=== PATIENT | female | born 1955 | race Caucasian/White ===

== ENCOUNTER 2016-10-09 15:22 | Inpatient (IN) | payer MEDICAID ==
[2016-10-09] VITALS (7 sets, daily range): BP systolic 89–164; BP diastolic 47–119; BMI 25.7
[~2016-10-09] VITALS: Ht 165.1 cm; Wt 68.5 kg
[2016-10-09 16:26] LABS: BASOPHILS 0.1 % (0.0-2.0); EOSINOPHILS 0.5 % (0-7); HEMATOCRIT 45.4 % (36.0-48.0); HEMOGLOBIN 15.2 g/dL (12-16); IMMATURE GRANULOCYTES 0.3 % (0-5); LYMPHOCYTES 14.7 % (15-50); MCH 33.6 pg (26.0-34.0); MCHC 33.5 g/dL (31.0-37.0); MCV 100.2 fL (80.0-100.0); MEAN PLATELET VOLUME 10.6 fL (7.4-10.4); MONOCYTES 9.8 % (2-11); NEUTROPHILS 74.6 % (40-80); PLATELET COUNT 129 10x3/uL (130-400); RBC 4.53 10x6/uL (4.00-5.40); RDW 13.3 % (11.5-14.5); WBC 15.5 10x3/uL (4.8-10.8)
[2016-10-09 16:36] LABS: ALBUMIN 3.5 g/dL (3.4-5.0); ALKALINE PHOSPHATASE 105 U/L (46-116); ALT (SGPT) 12 U/L (10-68); CALC OSMOLALITY 268 mosm/kg (275-300); CARBON DIOXIDE 28.4 mmol/L (21.0-32.0); CHLORIDE - SERUM 95 mmol/L (98-107); CREATININE - SERUM 2.5 mg/dL (0.6-1.3); GLUCOSE 122 mg/dL (74-106); SODIUM 133 mmol/L (136-145); UREA NITROGEN 19 mg/dL (7-18); eGFR NON AFRICAN AMERICAN 21 mL/min (90-120)
[2016-10-09 16:43] LABS: PRO BNP 488 pg/mL (0-125); TROPONIN-I < 0.017 ng/mL (0.000-0.060)
[2016-10-09 16:51] LABS: APPEARANCE HAZY (CLEAR); BILIRUBIN NEGATIVE (NEGATIVE); COLOR YELLOW (YELLOW); GLUCOSE NEGATIVE (NEGATIVE); KETONE NEGATIVE (NEGATIVE); LEUKOCYTE ESTERASE 1+ (NEGATIVE); NITRITE NEGATIVE (NEGATIVE); PROTEIN NEGATIVE (NEGATIVE); SPECIFIC GRAVITY 1.015 (1.005-1.020); UROBILINOGEN NORMAL (NORMAL)
[2016-10-09 16:52] LABS: BACTERIA MODERATE /hpf (NONE SEEN); RED CELLS - URINE 0-5 /hpf (0-5)
[2016-10-09 16:56] LABS: UDS - AMPHET NEGATIVE QUAL (NEGATIVE); UDS - BARB NEGATIVE QUAL (NEGATIVE); UDS - BENZO NEGATIVE QUAL (NEGATIVE); UDS - COCAINE NEGATIVE QUAL (NEGATIVE); UDS - METH NEGATIVE QUAL (NEGATIVE); UDS - OPIATE POSITIVE QUAL (NEGATIVE); UDS - PCP NEGATIVE QUAL (NEGATIVE); UDS - THC NEGATIVE QUAL (NEGATIVE)
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
[2016-10-09] MEDS ORDERED: LISINOPRIL10 MG PO (22:01)
[2016-10-09] MEDS ORDERED: BACLOFEN10 MG PO (22:01)
[2016-10-09] MEDS ORDERED: TRAZODONE HCL50 MG PO (22:02)
[2016-10-09] MEDS ORDERED: PROTONIX40 MG PO (22:02)
[2016-10-09] MEDS ORDERED: CELEXA20 MG PO (22:03)
[2016-10-09] MEDS ORDERED: NEURONTIN600 MG PO (22:04)
[2016-10-09] MEDS ORDERED: BAYER CHEWABLE81 MG PO (22:21)
[2016-10-09] MEDS ORDERED: OXYCONTIN10 MG PO (22:23)
[2016-10-09] MEDS ORDERED: THEREMS-M1 TAB PO (22:26)
[2016-10-09] MEDS ORDERED: FERROUS SULFAT325 MG PO (22:26)
[2016-10-10] VITALS (24 sets, daily range): BP systolic 89–188; BP diastolic 47–106
--- NOTE | 2016-10-10 | NUR ---
PATIENT RESTING IN BED WITH EYES CLOSED, AWAKENS TO STIMULI. STATES SHE IS STILL HAVING PAIN IN LEGS. VSS.
--- NOTE | 2016-10-10 03:22 | NUR ---
PATIENT HAD BOWEL MOVEMENT AND IS INCONTINENT OF URINE. PATTON PLACED FOR SKIN INTEGRITY.
[2016-10-10 04:24] LABS: BASOPHILS 0.1 % (0.0-2.0); EOSINOPHILS 0.1 % (0-7); HEMOGLOBIN 12.5 g/dL (12-16); IMMATURE GRANULOCYTES 0.3 % (0-5); LYMPHOCYTES 9.1 % (15-50); MCH 32.9 pg (26.0-34.0); MCHC 32.9 g/dL (31.0-37.0); MEAN PLATELET VOLUME 10.1 fL (7.4-10.4); MONOCYTES 10.3 % (2-11); NEUTROPHILS 80.1 % (40-80); PLATELET COUNT 123 10x3/uL (130-400); RDW 13.1 % (11.5-14.5)
[2016-10-10 04:38] LABS: ANION GAP 12.6 mmol/L (8-16); CALCIUM 8.2 mg/dL (8.5-10.1); CARBON DIOXIDE 25.9 mmol/L (21.0-32.0); CREATININE - SERUM 1.6 mg/dL (0.6-1.3); POTASSIUM - SERUM 4.5 mmol/L (3.5-5.1); WBC 10.9 10x3/uL (4.8-10.8)
--- NOTE | 2016-10-10 05:15 | NUR ---
PATIENT WOKE UP YELLING "HELP" UPON ENTERING ROOM PATIENT SAID SOMETHING WAS SQUEEZING HER LEGS. REMINDED PATIENT SHE HAD SCD'S ON. WAS ABLE TO STATE WHERE SHE WAS AND SITUATION. VSS. PATIENT RETURNED TO A CALM MANNER.
--- NOTE | 2016-10-10 07:33 | NUR ---
PT COMPLAINT OF CHEST PAIN STATING "CRUSHING PAIN" EKG AND CARDIAC ENXYMES ORDERED. PT CONFUSED TO TIME. WILL CONTINUE PLAN OF CARE.
[2016-10-10 08:25] LABS: CREATINE KINASE 1737 UL (21-215); TROPONIN-I < 0.017 ng/mL (0.000-0.060)
--- NOTE | 2016-10-10 09:04 | NUR ---
PAGED DR CALVO TO NOTIFY OF ELEVATED CKMB AND CK WITH NORMAL EKG AND NORMAL TROPONIN PLACED WHEN PT COMPLAINT OF CHEST PAIN. NEW ORDER PLACED FOR PROTONIX 40MG BID. WILL PLACE ORDERS DIRECTED. WILL CONTINUE PLAN OF CARE.
--- NOTE | 2016-10-10 10:42 | NUR ---
AT 1036 PT NOTED TO HAVE AGINAL BREATHING AND DESATED TO 80S, PT BAGGED AND OXYGEN SATURATION CAME UP AT 1038, OXYGEN SATURATION AT 98%. OXYGEN INCREASED FROM 2L VIA NC TO 5L VIA NC. DR CALVO NOTIFIED. NOTED CONSULT ORDER FOR DR ARMAS FOR PULMONOLOGY. WILL PLACE ORDERS.
--- NOTE | 2016-10-10 12:04 | NUR ---
UP IN BED AT THIS TIME VISITING WITH VISITOR. NO ACUTE DISTRESS NOTED. WILL CONTINUE PLAN OF CARE.
--- NOTE | 2016-10-10 12:58 | NUR ---
REFUSED LUNCH AND SNACKS OFFERED. WILL CONTINUE PLAN OF CARE AND WILL CONTINUE TO OFFER SNACKS.
--- NOTE | 2016-10-10 14:05 | NUR ---
UP IN BED AWAKE WATCHING TV AT THIS TIME. NO ACUTE DISTRESS NOTED. WILL CONTINUE PLAN FO CARE.
--- NOTE | 2016-10-10 16:05 | NUR ---
AWAKE IN BED AT THIS TIME WATCHING TV. DENEIS ANY NEEDS. NO ACUTE DISTRESS NOTED. WILL CONTINUE PLAN OF CARE.
--- NOTE | 2016-10-10 17:32 | NUR ---
PARTIAL LINEN CHANGE PROVIDED AT THIS TIME, NOTED SMALL BOWEL MOVEMENT. ALICIA CARE AND PATTON CARE PROVIDED VIA TOTAL ASSIST. NO ACUTE DISTRESS. PT TURNED Q2H. WILL CONTINUE PLAN OF CARE.
--- NOTE | 2016-10-10 17:58 | NUR ---
SITTING UP IN BED EATING SUPPER WITH SETUP ASSIST. NO ACUTE DISTRESS NOTED. WILL CONTINUE PLAN OF CARE.
--- NOTE | 2016-10-10 19:30 | NUR ---
RECEIVED PATIENT AWAKE IN BED WITH EYES OPEN, ASSESSMENT PCOMPLETED PER FLOWSHEET. PATIENT IS DISORIENTED TO SITUATION, ANSWERED PATIENT QUESTION REGARDING CURRENT STATUS TO PATIETN SATISFACTION. EYES PERRLA @ 3MM WITH BRISK RESPONSE, SCLERA IS WHITE. 5L O2 VIA NC, ORAL MUCOSA IS MOIST AND INTACT. S1/S2 NOTED WITH PATIENT SINUS TACH ON TELEMETRY WITH HR OF 105, RHYTHMIC AND REGULAR. SLIGHT RHONCHI NOTED THROUGHOUT ALL LOBES WITH BREATHING SHALLOW AND REGULAR, AUSCULATATION DIFFICULT DUE TO PATIENT REPEATEDLY CLEARING THROAT. ABDOMEN IS SOFT AND NON-TENDER TO PALPATION, BOWEL SOUNDS HYPOACTIVE X4. PATTON SECURED IN PLACE WITH CLEAR YELLOW URINE NOTED IN COLLECTION BAG, YELLOW STICKY DISCHARGE NOTED BETWEEN THIGHS NEAR VAGINAL AREA. PATIENT ADL LIMITED FROM CONTRACTURES, WEAKNESS NOTED IN ALL EXTREMITIES. 20G PIV NOTED R HAND, PATENT WITH FLUIDS INFUSING. PATIENT C/O DIFFICULTY SWALLOWING AND "FEELS LIKE MUCOUS IS HUNG IN HER THROAT", SPEECH THERAPY TO BEGIN TREATMENT IN AM FOR DIAGNOSED DYSPHAGIA. ALL PULSES PALPABLE, NO FURTHER NEEDS AT THIS TIME. WILL CONTINUE TO MONITOR.
--- NOTE | 2016-10-10 21:00 | NUR ---
NO VISITORS AT THIS TIME, HS MEDS GIVEN PO. PILLS GIVEN ONE AT A TIME, MULTIPLE SWALLOW ATTEMPTS MADE FOR EACH PILL. MAGALIE STATES ANXIETY FROM "ANNOYING LUMP IN BACK OF THROAT", GIVEN PRN MEDS TO REDUCE AND WILL REASSESS. NO FURTHER NEEDS AT THIS TIME, WILL CONTINUE TO MONITOR.
--- NOTE | 2016-10-10 23:16 | NUR ---
REASSESSMENT COMPELTE PER FLOW SHEET. VSS. NO NEW CHANGES AT THIS TIME. WILL CONTINUE TO MONITOR.
[2016-10-11] VITALS (16 sets, daily range): BP systolic 128–157; BP diastolic 65–110; Ht 165.1 cm; Wt 68.5 kg
--- NOTE | 2016-10-11 01:00 | NUR ---
PATIENT RESTING IN BED WITH EYES CLOSED, PATIENT STILL ATTEMPTING TO CLEAR THROAT. STATES "FEELS LIKE SOMETHING IS STUCK", YANKEUR PROVIDED TO HELP CLEAR SECRETIONS FROM MOUTH. DENIES OTHER NEEDS AT THIS TIME, ALL VSS AND WILL CONTINUE TO MONITOR.
--- NOTE | 2016-10-11 02:46 | NUR ---
REASSESSMENT COMPLETE PER FLOWSHEET, PATIENT RESTING IN BED WITH EYES CLOSED. BREATHING IS SLIGHTLY SHALLOW WITH RHONCHI NOTED THROUGHOUT ALL NEWSOME. PATIENT IS NSR ON TELEMETRY WITH HR OF 94, RHYTHMIC AND REGULAR. PATIENT DENIES PAIN OR OTHER NEEDS AT THIS TIME, ALL VSS AND WILL CONTINUE TO MONITOR.
[2016-10-11 04:11] LABS: BASOPHILS 0.1 % (0.0-2.0); EOSINOPHILS 1.8 % (0-7); HEMATOCRIT 35.8 % (36.0-48.0); HEMOGLOBIN 11.6 g/dL (12-16); IMMATURE GRANULOCYTES 0.3 % (0-5); LYMPHOCYTES 13.8 % (15-50); MCH 32.4 pg (26.0-34.0); MCHC 32.4 g/dL (31.0-37.0); MEAN PLATELET VOLUME 10.6 fL (7.4-10.4); MONOCYTES 13.8 % (2-11); NEUTROPHILS 70.2 % (40-80); PLATELET COUNT 129 10x3/uL (130-400); RBC 3.58 10x6/uL (4.00-5.40); RDW 13.1 % (11.5-14.5)
[2016-10-11 04:28] LABS: ANION GAP 13.4 mmol/L (8-16); CALCIUM 8.2 mg/dL (8.5-10.1); CARBON DIOXIDE 24.4 mmol/L (21.0-32.0)
[2016-10-11 04:29] LABS: POTASSIUM - SERUM 3.8 mmol/L (3.5-5.1)
--- NOTE | 2016-10-11 05:00 | NUR ---
PATIENT RESTING IN BED WITH EYES CLOSED, OXYGEN SAT 97% ON 5L O2. NO FURTHER NEEDS AT THIS TIME, ALL VSS AND WILL CONTINUE TO MONITOR.
--- NOTE | 2016-10-11 07:15 | NUR ---
ASSESSMENT COMPLETE. AAO X4. PATIENT ANXIOUS. C/O RIGHT HIP PAIN. RESTLESS. 3L NC. CRACKLES IN RUL, RML, LOUISA. DIMINISHED LOWER LOBES BILAT. S1S2 NOTED, RADIAL AND PEDAL PULSES PALP, SINUS TACHYCARDIA. ACTIVE BOWEL SOUNDS X4. PUREE DIET. SAYS SHE HAS NO APPETITE. AFEBRILE. GENERALIZED WEAKNESS WITH STIFF UPPER EXTREMETY AND LIMITED ROM. RIGHT HAND PIV PATENT. FOR OTHER ASSESSMENT FINDINGS SEE FLOWSHEET. WILL CONTINUE TO MONITOR.
--- NOTE | 2016-10-11 09:00 | NUR ---
NO VISITORS AT BEDSIDE. DID NOT EAT MUCH OF BREAKFAST, SAID SHE DID NOT LIKE HER FOOD PUREED.
--- NOTE | 2016-10-11 11:00 | NUR ---
REASSESSMENT COMPLETE. DR CALVO AT BEDSIDE. MEPILEX DRESSING APPLIED TO COCCYX. FOR ASSESSMENT FINDINGS SEE DETAILS ON FLOWSHEET.
--- NOTE | 2016-10-11 11:35 | NUR ---
REQUESTED BACLOFEN FROM PHARMACY
--- NOTE | 2016-10-11 12:37 | NUR ---
ASSISTED PATIENT WITH LUNCH TRAY. PATIENT COUGHED OCCASIONALLY WHEN SWALLOWING BUT NOT CONSISTANTLY. SAYS "THE TEXTURE OF THE FOOD BOTHERS ME, IT DOESNT TASTE GOOD." ATE ONLY A SMALL AMOUNT OF FOOD. ORAL CARE PROVIDED AFTER MEAL.
--- NOTE | 2016-10-11 12:46 | NUR ---
PATIENT DRANK ALL OF ENSURE DRINK SUPPLEMENT
--- NOTE | 2016-10-11 14:17 | NUR ---
DR. CALVO SAID PATIENT IS OK TO GO TO FLOOR LONG DR. LU SAYS PATIENT IS OK TO GO TO FLOOR. SPOKE WITH DR. LU, SHE IS OKAY TO TRANSFER OUT.
--- NOTE | 2016-10-11 14:30 | NUR ---
PT AT BEDSIDE DOING ROM
--- NOTE | 2016-10-11 17:04 | NUR ---
vIs the patient Alert and Oriented? Yes 0 * How many steps to enter\exit or inside your home? none 0 * PCP DR Sean Lee, [place] SHAHEEN Valdez sees the patient 0 * Pharmacy [facility] [employer] 0 * Preadmission Environment Home Alone 0 * ADLs Partial Dependent 0 * Partial ADLs (Assistance needed) Bathing Dressing 0 * Equipment Shower Chair 0 * Other Equipment raised toilet seat, power lift chair, walker, shower chair, commode, manual wheelchair 0 * List name and contact numbers for known caregivers / representatives who currently or will assist patient after discharge: Jessie Sarmiento- [facility]- [phone] CHOCOLATE MAKER from [facility] 0 * Community resources currently utilized Home Health 0 * Please name any agencies selected above. [facility] for SN/ PT/ OT/ Social Work 0 * Additional services required to return to the preadmission environment? Yes 0 * Can the patient safely return to the preadmission environment? Yes 0 * Has this patient been hospitalized within the prior 30 days at any hospital? No 0
--- NOTE | 2016-10-11 17:37 | NUR ---
Met w/ patient at the bedside. She complained of feeling hot and "burning up". The room was at approximately 68 degrees. She has nasal O2 however appears short of breath. She is speaking in short sentences and stopping to take a breath between each sentence. Patient is not on oxygen at home. She lives at the [facility] in [address]. There is an elevator in the building. She has home health services w/ [facility] and [facility]. CM spoke w/ Marjan at [facility] . She states patient has been receiving SN/ PT/ OT/ services. SW consult was recently assigned. Patient was requesting more care. Cody Lehman started [employer] services September 05, 2016. She had an apt w/ DR Alyssa Silva, her "rehab doctor" 10/07. The patient had been feeling "bad" and weaker. Planning for possible admission to [facility] Rehab Unit at discharge. Patient's PCP is DR Sean Cruz. She sees his FRONT OFFICE HELP, Serina Valdez. Pharmacy- [facility] Patient has a sister, Jessie Sarmiento, . Her contact phone number is [phone]. The sister will provide transportation to home. Patient is hoping to go to [facility] acute rehab w/ DR Silva when medically stable. DME- can not recall her provider. She has a walker, raised toilet seat, commode, manual wheelchair, power lift chair, Neurology consult pending and multiple labs. Radiology disc prepared if patient is transferred to [facility]. CM to follow. Patient is cooperative but fatigues easily.
--- NOTE | 2016-10-11 17:59 | NUR ---
RECIEVED FROM ICU AWAKE AND ALERT ORINETD X 3 SCDS BILATERALLY PATTON PATENT TO CLEAR YELLOW URINE. ORINETED TO ROOM AND CALL LIGHT SYSTEM. LIMITED MOBILITY NOTED O RIGHT UPPER EXTRMEITY AND LIMITED MOTOR CONTROL TO LEFT UPPER EXTREMITY. WILL MONITOR
--- NOTE | 2016-10-11 19:45 | NUR ---
BROUGHT PATIENT A PILLOW PER HER REQUEST. PATIENT DENIES OTHER NEEDS AT THIS TIME. BED IN LOWEST POSITION AND CALL LIGHT WITHIN REACH.
--- NOTE | 2016-10-11 23:10 | NUR ---
PATIENT IS UPSET THAT HER ROOM IS "HOT". PATIENT'S AIR CONDITIONER IS BLOWING COLD AND HER WINDOW IS OPEN. I SPOKE WITH SURJIT ABOUT GETTING A FAN FOR THE PATIENT'S ROOM.
--- NOTE | 2016-10-11 23:15 | NUR ---
ATTEMPTED TO PERFORM ASSESSMENT ON PATIENT. PATIENT REFUSED STATING "NO, DON'T TOUCH ME AND DON'T GIVE ME ANYMORE MEDICINE."
[2016-10-12 01:00] VITALS: BP 156/92
--- NOTE | 2016-10-12 02:43 | NUR ---
ATTEPMTED TO PERFORM AM ABG. PT REFUSED. SHE REFUSES TO PERFORM IS/FLUTTER. "IM NOT DOING THOSE BREATHING THINGS AND YOU AREN'T TOUCHING ME."
[2016-10-12 05:00] VITALS: BP 145/99
[2016-10-12 05:49] LABS: BASOPHILS 0.1 % (0.0-2.0); EOSINOPHILS 1.2 % (0-7); HEMOGLOBIN 12.8 g/dL (12-16); IMMATURE GRANULOCYTES 0.3 % (0-5); LYMPHOCYTES 11.2 % (15-50); MCH 32.7 pg (26.0-34.0); MCHC 33.7 g/dL (31.0-37.0); MONOCYTES 8.9 % (2-11); NEUTROPHILS 78.3 % (40-80); PLATELET COUNT 141 10x3/uL (130-400); RBC 3.91 10x6/uL (4.00-5.40); RDW 12.8 % (11.5-14.5); WBC 7.4 10x3/uL (4.8-10.8)
[2016-10-12 05:56] LABS: MCV 97.2 fL (80.0-100.0)
[2016-10-12 06:54] LABS: CALCIUM 8.1 mg/dL (8.5-10.1); CARBON DIOXIDE 19.5 mmol/L (21.0-32.0); CHLORIDE - SERUM 98 mmol/L (98-107); GLUCOSE 104 mg/dL (74-106); SODIUM 132 mmol/L (136-145)
[2016-10-12 06:56] LABS: CALC OSMOLALITY 262 mosm/kg (275-300); CREATINE KINASE 1000 UL (21-215); CREATININE - SERUM 0.7 mg/dL (0.6-1.3); MAGNESIUM - SERUM 1.6 mg/dL (1.8-2.4); POTASSIUM - SERUM 4.6 mmol/L (3.5-5.1); UREA NITROGEN 8 mg/dL (7-18); eGFR NON AFRICAN AMERICAN 90 mL/min (90-120)
[2016-10-12 07:18] LABS: CKMB 3.9 U/L (0.0-3.6)
[2016-10-12 07:41] LABS: ERYTHROCYTE SEDIMENTATION RATE 28 mm/hr (0-30)
[2016-10-12 08:19] VITALS: BP 155/98
--- NOTE | 2016-10-12 08:29 | NUR ---
PT ASSESSMENT COMPLETE AWAKE AND ALERT TO SURROUNDING ORIENTED X 3 LUNGS CLEAR BILATERALLY HAS DIFFICULTY CLEARING THROAT PER PT REPORT UPON OBSERVATION NOTHING NOTED TO MOUTH OR BACK OF PHARANX. PT REFUSING BREAKFAST HOWEVER DRANK 75% OF ENSURE. CALL LIGHT IN REACH SIDE RAILS UP X 2
[2016-10-12 09:17] LABS: JO-1 ANTIBODY <0.2 AI (0.0-0.9)
[2016-10-12 11:46] VITALS: BP 150/94
--- NOTE | 2016-10-12 12:40 | NUR ---
PATIENT IN MID BAUMAN POSITION ALERT. NO SIGNS OF DISTRESS NOTED. SIDE RAILS UP X2. BED IN LOW POSITION. CALL LIGHT IN REACH.
[2016-10-12 16:10] VITALS: BP 161/109
--- NOTE | 2016-10-12 19:37 | NUR ---
PATIENT RESTING IN SEMI-FOWLERS POSITION WITH EYES CLOSED. NO VISIBLE SIGNS OF DISTRESS. BED IN LOWEST POSITION AND CALL LIGHT WITHIN REACH.
[2016-10-12 21:00] VITALS: BP 147/95
[2016-10-13 01:00] VITALS: BP 140/96
[2016-10-13 05:00] VITALS: BP 158/114
--- NOTE | 2016-10-13 07:30 | NUR ---
RECIEVED PT DURING WALKING ROUNDS. PT RESTING IN BED WITH GENERALIZED PAIN OF A 9 ON A SCALE OF 1-10. INFORMED PT THAT SCHEDULED MEDICATION FOR PAIN WOULD BE GIVEN WITH MORNING MEDS. ASSESSMENT DONE PER FLOWSHEET. BED IN LOW POSITION AND CALL LIGHT WITHIN REACH. WILL CONTINUE TO MONITOR.
[2016-10-13 08:00] VITALS: BP 155/100
[2016-10-13 10:18] LABS: ANA REFLEX - DIRECT Negative (Negative)
[2016-10-13 10:18] LABS: ALDOLASE 9.2 U/L (3.3-10.3)
--- NOTE | 2016-10-13 11:00 | NUR ---
CALLED AND SPOKE TO DR. CALVO ABOUT PT PAIN MEDICATION. RECIEVED AN ORDER TO RESUME PAIN MEDICATION FROM HOME MED LIST. CALLED PT PHARMACY TO VERIFY MEDICATION ORDER. INFORMED PT THAT WE WOULD GIVE HER PAIN MEDICATION WHEN AVAILABLE FROM PHARMACY. BED IN LOW POSITION AND CALL LIGHT WITHIN REACH. WILL CONTINUE TO MONITOR.
--- NOTE | 2016-10-13 12:15 | NUR ---
NUTRITION MONITORING & EVAL CHART REVIEWED. PT RECEIVING BANANA BAG. PUREED DIET WITH NO INTAKE BREAKFAST. PT DID CONSUME 100% ENSURE AT BREAKFAST. WILL CONTINUE TO PROVIDE DIET, ENSURE. MONITOR PT PROGRESS. RD FOLLOWING
--- NOTE | 2016-10-13 12:20 | NUR ---
PATIENT IN LOW BAUMAN POSTION. RESTING QUIETLY. RESPIRATIONS EVEN AND UNLABORED. [facility] STUDENT AND INSTRUCTOR AT BEDSIDE. SIDE RAILS UP X2. BED IN LOW POSITION. CALL LIGHT IN REACH.
[2016-10-13 16:02] VITALS: BP 119/75
--- NOTE | 2016-10-13 18:22 | NUR ---
OT NOTES: PT COMPLETED BUE PROM FOR DECREASED RISK OF SKIN BREAKDOWN. PT COMPLETED SIMPLE GROOMING WITH MOD A. THANK YOU, SILVANA RODRIGUES/Tatyana
--- NOTE | 2016-10-13 19:00 | NUR ---
BEDSIDE REPORT RECEIVED AND CARE OF PT ASSUMED. PT LYING IN SEMI BAUMAN'S POSITION WITH EYES CLOSED. IV IN RIGHT HAND PATENT WITH BANANA BAG INFUSING AT 100 ML / HR. PATTON CATHETER DRAINING TO GRAVITY WITY YELLOW URINE IN COLLECTION BAG. O2 IN USE AT 2L VIA NC. WILL MONITOR CLOSLEY FOR NEEDS.
--- NOTE | 2016-10-13 21:21 | NUR ---
HS MEDICATIONS GIVEN WITH SIPS OF WATER. PT TOLERATED WELL. WILL CONTINUE TO MONITOR CLOSELY FOR NEEDS.
[2016-10-13 22:09] VITALS: BP 114/75
--- NOTE | 2016-10-13 22:39 | NUR ---
PT YELLING OUT AND SAYING SHE CANNOT BREATH...VERY ANXIOUS. SPO2 82 / 98% ON 2L VIA NC. GAVE ATIVAN 1 MG IVP PER PRN ORDER. PT CALMER NOW AND NOT YELLING. SAT STILL 98% ON 2L AND PT BREATHING EASIER.
[2016-10-14 01:48] VITALS: BP 101/65
[2016-10-14 04:00] VITALS: BP 122/70
--- NOTE | 2016-10-14 04:28 | NUR ---
PT GETTING ANXIOUS AND YELLING OUT. GAVE 1 MG ATIVAN IVP PER PRN ORDER. WILL MONITOR FOR EFFECTIVENESS. SIDE RAILS UP X2 FOR SAFETY.
--- NOTE | 2016-10-14 06:07 | NUR ---
PT RESTING QUIETLY AT THIS TIME WITH EYES CLOSED. ALL NEEDS MET DURING SHIFT. CONTINUE PLAN OF CARE.
[2016-10-14 06:18] LABS: BASOPHILS 0.5 % (0.0-2.0); EOSINOPHILS 3.7 % (0-7); HEMATOCRIT 32.8 % (36.0-48.0); HEMOGLOBIN 11.2 g/dL (12-16); IMMATURE GRANULOCYTES 1.7 % (0-5); LYMPHOCYTES 20.1 % (15-50); MCH 32.7 pg (26.0-34.0); MCHC 34.1 g/dL (31.0-37.0); MCV 95.9 fL (80.0-100.0); MEAN PLATELET VOLUME 9.9 fL (7.4-10.4); RBC 3.42 10x6/uL (4.00-5.40); RDW 13.1 % (11.5-14.5); WBC 6.6 10x3/uL (4.8-10.8)
[2016-10-14 06:23] LABS: PLATELET COUNT 187 10x3/uL (130-400)
[2016-10-14 06:52] LABS: CALC OSMOLALITY 274 mosm/kg (275-300); CALCIUM 8.3 mg/dL (8.5-10.1); CARBON DIOXIDE 21.6 mmol/L (21.0-32.0); CHLORIDE - SERUM 105 mmol/L (98-107); CKMB 2.2 U/L (0.0-3.6); CREATINE KINASE 348 UL (21-215); CREATININE - SERUM 0.6 mg/dL (0.6-1.3); GLUCOSE 101 mg/dL (74-106); MAGNESIUM - SERUM 1.9 mg/dL (1.8-2.4); PHOSPHOROUS 2.8 mg/dL (2.5-4.9); POTASSIUM - SERUM 5.1 mmol/L (3.5-5.1); SODIUM 138 mmol/L (136-145); UREA NITROGEN 11 mg/dL (7-18); eGFR NON AFRICAN AMERICAN > 90 mL/min (90-120)
--- NOTE | 2016-10-14 07:41 | NUR ---
PT RECEIVED RESTING IN BED WITH EYES CLOSED. RESIDENT ALERT AND ORIENTED X3. LUNG SOUNDS CLEAR BILATERALLY. DENIES PAIN AT THIS TIME. ANSWERS QUESTION, SLOW TO RESPOND. IV NOTED IN RIGHT HAND WITH NS @ 50. PATTON CATHETER IN PLACE WITH CLEAR YELLOW RETURN. DENIES PAIN AT THIS TIME. ABD SOFT AND NONTENDER UPON PALPATION. BOWEL SOUNDS ACTIVE IN ALL FOUR QUADRANT. 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 SIDE RAILS UP X2. BED IN LOW POSITION. CALL LIGHT AND H2O IN REACH.
[2016-10-14 08:28] VITALS: BP 132/82
--- NOTE | 2016-10-14 09:45 | NUR ---
PT RECIEVED 1 MG IV LORAZEPAM EARLIER THIS SHIFT FOR INCREASING ANXIETY PT STILL WITH SOME YELLING OUT NOTED WELL SOME UNCONTROLLED CRYING.
--- NOTE | 2016-10-14 12:03 | NUR ---
PT RESTING IN BED. EYES CLOSED. PT REPEATING, "CALL MY SISTER. CALL MY DR AT [facility]." PT REMINDED THAT SISTER IS AT WORK. PT REPLIED, "I DON'T CARE. IF YOU DON'T I'M GOING TO [facility] THIS HOSPITAL." PT CONTINUES TO REPEAT, "CALL MY SISTER. CALL MY DR AT [facility]. ARE YOU LISTENING TO ME? YOU HAVE TO PROMISE ME." PT SPEECH NOTED TO BE SLOWED.
[2016-10-14 12:04] VITALS: BP 101/60
--- NOTE | 2016-10-14 14:36 | NUR ---
PT RESTING WITH EYES CLOSED RESPS EVEN AND UNLABORED.
[2016-10-14 15:48] VITALS: BP 125/82
--- NOTE | 2016-10-14 18:50 | NUR ---
OT NOTE: PT REQUIRED MAX A FOR SELF FEEDING. PINA COMPLETED BUE POSITIONING FOR DECREASED RISK OF SKIN BREAKDOWN. SKIN INTEGRITY IS AT RISK SECONDARY TO POOR INTAKE. THANK YOU, SILVANA RODRIGUES/Tatyana
[2016-10-15 04:42] LABS: BASOPHILS 0.2 % (0.0-2.0); EOSINOPHILS 2.9 % (0-7); HEMATOCRIT 31.5 % (36.0-48.0); HEMOGLOBIN 10.4 g/dL (12-16); IMMATURE GRANULOCYTES 0.3 % (0-5); LYMPHOCYTES 13.4 % (15-50); MCH 32.5 pg (26.0-34.0); MEAN PLATELET VOLUME 9.1 fL (7.4-10.4); MONOCYTES 9.9 % (2-11); NEUTROPHILS 73.3 % (40-80); PLATELET COUNT 177 10x3/uL (130-400); RDW 13.4 % (11.5-14.5)
[2016-10-15 04:54] LABS: MCV 98.4 fL (80.0-100.0); WBC 8.7 10x3/uL (4.8-10.8)
[2016-10-15 05:42] LABS: CALC OSMOLALITY 276 mosm/kg (275-300); CALCIUM 8.3 mg/dL (8.5-10.1); CARBON DIOXIDE 22.7 mmol/L (21.0-32.0); CHLORIDE - SERUM 107 mmol/L (98-107); CREATININE - SERUM 0.6 mg/dL (0.6-1.3); GLUCOSE 87 mg/dL (74-106); MAGNESIUM - SERUM 1.9 mg/dL (1.8-2.4); POTASSIUM - SERUM 4.8 mmol/L (3.5-5.1); SODIUM 140 mmol/L (136-145); UREA NITROGEN 11 mg/dL (7-18); eGFR NON AFRICAN AMERICAN > 90 mL/min (90-120)
[2016-10-15 08:03] VITALS: BP 142/85
--- NOTE | 2016-10-15 09:55 | NUR ---
VOICES COMPLAINTS OF HIP AND LEG PAIN, REPOSITIONED AND PAIN MEDS GIVEN, YULY CONTINUE TO MONITOR
[2016-10-15 12:45] VITALS: BP 91/58
--- NOTE | 2016-10-15 14:41 | NUR ---
PT RESTING IN BED BP COMING UP, WAS 89/54 NOW ITS 106/68, DENIES NEEDS, SISTER AT BEDSIDE, AZRA BED ALARM ON, SIDE RAILS UP X2, BED LOWEST POSITION, CALL LIGHT IN REACH, WILL CONTINUE TO MONITOR
[2016-10-15 15:40] VITALS: BP 108/75
--- NOTE | 2016-10-15 16:34 | NUR ---
OT NOTE: PT COMPLETED BUE POSITIONING FOR DECREASED RISK OF SKIN BREAKDOWN WITH MARTY Denton. PT COMPLETED SIMPLE GROOMING TASK WITH MARTY Denton. THANK YOU, SILVANA RODRIGUES/Tatyana
--- NOTE | 2016-10-15 17:18 | NUR ---
PT LEFT FLOOR FOR MRI
[2016-10-15 19:00] VITALS: BP 119/67
[2016-10-15 23:00] VITALS: BP 109/86
[2016-10-16 01:49] VITALS: BP 110/68
[2016-10-16 05:00] VITALS: BP 113/78
--- NOTE | 2016-10-16 08:25 | NUR ---
PATEINT IN LOW BAUMAN POSITION RESTING QUIETLY WITH EYES CLOSED. RESPIRATIONS EVEN UNLABORED. SIDE RAILS UP X2. BED IN LOW POSITION. CALL LIGHT IN REACH.
[2016-10-16 09:08] VITALS: BP 102/67
[2016-10-16 12:41] VITALS: BP 118/85
--- NOTE | 2016-10-16 16:32 | NUR ---
PT COMPLAINS OF PAIN IN HER LEGS AND HIPS, REPOSITIONED AND PAIN MEDS GIVEN FOR BREAKTHROUGH PAIN, ATIVAN GIVEN FOR ANXIETY, BED LOWEST POSITION, CALL LIGHTIN REACH, WILL CONTINUE TO MONITOR
--- NOTE | 2016-10-16 17:40 | NUR ---
RESTING QUIETLY, EASILY AROUSED, DENIES NEEDS, CALL LIGHT IN REACH, BED LOWEST POSITION, SIDE RAILS UP X2
[2016-10-16 19:05] VITALS: BP 114/80
[2016-10-16 20:00] VITALS: BP 118/76
[2016-10-17 06:17] LABS: BASOPHILS 0.3 % (0.0-2.0); EOSINOPHILS 2.5 % (0-7); HEMATOCRIT 30.8 % (36.0-48.0); IMMATURE GRANULOCYTES 0.5 % (0-5); LYMPHOCYTES 14.5 % (15-50); MCH 32.4 pg (26.0-34.0); MCHC 32.5 g/dL (31.0-37.0); MCV 99.7 fL (80.0-100.0); MEAN PLATELET VOLUME 9.4 fL (7.4-10.4); MONOCYTES 10.8 % (2-11); NEUTROPHILS 71.4 % (40-80); PLATELET COUNT 231 10x3/uL (130-400); RBC 3.09 10x6/uL (4.00-5.40); RDW 14.2 % (11.5-14.5); WBC 9.8 10x3/uL (4.8-10.8)
--- NOTE | 2016-10-17 07:25 | NUR ---
SITTING IN BED, COMPLAINTS OF LEG PAIN, REASSESSED PAIN MEDICATION SHE STATES "ITS NOT HELPING", REPOSITIONED, BED LOWEST POSITION, CALL LIGHTIN REACH, SIDE RAILS UP X2, WILL CONTINUE TO MONITOR
[2016-10-17 08:14] VITALS: BP 97/62
--- NOTE | 2016-10-17 09:32 | NUR ---
PATIENT ALERT IN MID BAUMAN POSITION. RESPIRATIONS EVEN AND UNLABORED. SIDE RAILS UP X2. BED IN LOW POSITION. CALL LIGHT IN REACH. NO NEEDS VOICED.
[2016-10-17 12:31] VITALS: BP 109/67
[2016-10-17 15:33] VITALS: BP 112/65
[2016-10-17 21:00] VITALS: BP 119/73
--- NOTE | 2016-10-17 21:00 | NUR ---
PATIENT RESTING IN BED. NO SIGNS OF DISTRESS NOTED. SCHEDULED MEDS GIVEN ORDERED. DENIES ANY NEEDS AT THIS TIME. BED LOW. CALL LIGHT IN REACH.
[2016-10-18 01:00] VITALS: BP 122/71
--- NOTE | 2016-10-18 02:30 | NUR ---
PATIENT RESTING WITH EYES CLOSED. NO VISIBLE SIGNS OF DISTRESS. BED IN LOWEST POSITION AND CALL LIGHT WITHIN REACH.
--- NOTE | 2016-10-18 07:52 | NUR ---
PT. AOX4 PT. ASKS FOR WATER AT THIS TIME. WATER GIVEN PO WITHOUT DIFFICULTY AT THIS TIME. IV PATENT AND INTACT BED IN LOWEST SETTING CALL LIGHT WITHIN REACH AND WILL CONTINUE TO MONITOR.
[2016-10-18 07:59] VITALS: BP 140/79
--- NOTE | 2016-10-18 08:57 | NUR ---
Patient Name: AARON MADDOX Encounter No: [id number] : 1955 Primary Insurance: [employer] [place] [employer] Anticipated DC Date: 10-13-2016 Planned Disposition: Inpatient Rehab Facility External Planned Provider: : DCP follow-up note: Patient and family in agreement with discharge plan. No changes to plan. Case management will follow and assist as needed. Mally Villa
[2016-10-18 11:31] VITALS: BP 141/86
--- NOTE | 2016-10-18 12:08 | NUR ---
NUTRITION MONITORING & EVAL CHART REVIEWED, PT VISIT. PUREED DIET WITH POOR PO INTAKE AT THIS TIME. WILL CONTINUE TO PROVIDE DIET, MONITOR PT PROGRESS. RD FOLLOWING
[2016-10-18 16:12] VITALS: BP 108/66
[2016-10-18 19:16] LABS: ALBUMIN 2.2 g/dL (3.4-5.0); ALKALINE PHOSPHATASE 81 U/L (46-116); ALT (SGPT) 17 U/L (10-68); BILIRUBIN - TOTAL 0.43 mg/dL (0.2-1.3); CALC OSMOLALITY 275 mosm/kg (275-300); CALCIUM 8.5 mg/dL (8.5-10.1); CARBON DIOXIDE 29.1 mmol/L (21.0-32.0); CHLORIDE - SERUM 102 mmol/L (98-107); CREATININE - SERUM 0.6 mg/dL (0.6-1.3); GLUCOSE 110 mg/dL (74-106); MAGNESIUM - SERUM 1.2 mg/dL (1.8-2.4); PHOSPHOROUS 3.7 mg/dL (2.5-4.9); POTASSIUM - SERUM 3.5 mmol/L (3.5-5.1); PROTEIN - SERUM 5.8 g/dL (6.4-8.2); SODIUM 138 mmol/L (136-145); UREA NITROGEN 10 mg/dL (7-18); eGFR NON AFRICAN AMERICAN > 90 mL/min (90-120)
[2016-10-18 21:00] VITALS: BP 142/79
--- NOTE | 2016-10-18 21:45 | NUR ---
PATIENT RESTING IN BED. NO SIGNS OF DISTRESS NOTED. ALERT AND ORIENTED. ASSESSMENT COMPLETED. SCHEDULED MEDS GIVEN. DENIES NEEDS AT THIS TIME. BED LOW. CALL LIGHT IN REACH.
[2016-10-19 01:00] VITALS: BP 150/80
[2016-10-19 05:00] VITALS: BP 122/72
--- NOTE | 2016-10-19 06:08 | NUR ---
PATIENT RESTING WITH EYES CLOSED. NO VISIBLE SIGNS OF DISTRESS. BED IN LOWEST POSITION AND CALL LIGHT WITHIN REACH.
[2016-10-19 08:35] LABS: CALC OSMOLALITY 272 mosm/kg (275-300); CALCIUM 8.8 mg/dL (8.5-10.1); CARBON DIOXIDE 31.1 mmol/L (21.0-32.0); CHLORIDE - SERUM 101 mmol/L (98-107); CREATININE - SERUM 0.6 mg/dL (0.6-1.3); GLUCOSE 93 mg/dL (74-106); POTASSIUM - SERUM 3.5 mmol/L (3.5-5.1); SODIUM 137 mmol/L (136-145); UREA NITROGEN 10 mg/dL (7-18); eGFR NON AFRICAN AMERICAN > 90 mL/min (90-120)
[2016-10-19 09:47] VITALS: BP 126/81
--- NOTE | 2016-10-19 14:09 | NUR ---
OT NOTE: PERFORMED PROM TO B UES; EXTENSIVE STRETCHING TO R FINGERS. OBSERVED PTS FUNCTIONAL HAND SPLINT ON THE TABLE, HOWEVER, DID NOT APPLY DUE TO SIGNFICANT MOISTURE ON INTERIOR OF R UE..POSITIONED AND ELEVATED ON PILLOW TO ALLOW FOR INCREASED AIR FLOW TO PREVENT SKIN BREAK DOWN; PERFORMED ACTIVE AND PROM TO L UE; REPOSITIONED HEAD NUMEROUS TIMES, SHE REPORTED THAT IT FELT LIKE HER NECK WAS IN TOO MUCH EXTENSION..EVENTUALLY GOT PT REPOSITIONED COMFORTABLLY
[2016-10-19 14:31] VITALS: BP 133/80
[2016-10-19 15:57] VITALS: BP 100/60
--- NOTE | 2016-10-19 16:17 | NUR ---
CM REASSESSMENT NOTE: CM AND DR. PAT SPOKE WITH PATIENT AND HER SISTER REGARDING PATIENT GOING TO A NURSING FACILITY. PATIENT STATED HER SISTER (MICHELLE GONZALEZ) COULD CHOOSE THE FACILITY FOR PLACEMENT. SISTER WILL PROVIDE THE TOP 3 CHOICES IN THE [facility] AREA TO CM.
--- NOTE | 2016-10-19 19:09 | NUR ---
OT NOTE: PT COMPLETED BUE PROM TO REDUCE RISK OF SKIN BREAKDOWN. PT COMPLETED BUE POSITIONING WITH MARTY Denton. PT COMPLETED ORAL HYGIENE WITH MARTY Denton. THANK YOU, LARISA RODRIGUES
[2016-10-19 21:00] VITALS: BP 103/65
--- NOTE | 2016-10-19 21:28 | NUR ---
PATIENT RESTING IN BED. NO SIGNS OF DISTRESS NOTED. ASSESSMENT COMPLETED. SCHEDULED MEDICATIONS GIVEN. DENIES ANY NEEDS AT THIS TIME. BED LOW. CALL LIGHT IN REACH
[2016-10-20 01:00] VITALS: BP 114/70
--- NOTE | 2016-10-20 01:55 | NUR ---
PATIENT RESTING IN BED. ADJUSTED PATIENT'S PILLOWS PER HER REQUEST. PATIENT DENIES OTHER NEEDS AT THIS TIME. BED IN LOWEST POSITION AND CALL LIGHT WITHIN REACH.
[2016-10-20 05:00] VITALS: BP 99/60
--- NOTE | 2016-10-20 09:00 | NUR ---
ASSESSMENT PER FLOW SHEET,PT WITHOUT DISTRESS.CALL LIGHT IN REACH
[2016-10-20 11:04] VITALS: BP 124/76
[2016-10-20 11:48] VITALS: BP 128/74
--- NOTE | 2016-10-20 14:05 | NUR ---
CM REASSESSMENT NOTE: REFERRAL HAS BEEN SENT TO [facility] IN [place] THIS AM. CM CALLED TO MAKE SURE THEY REC. TOTAL FAX AND THEY CONFIRMED. [facility] STATED THEY WOULD CALL WITH ANSWER SOON ONE IS MADE. CM WILL CONTINUE TO FOLLOW PATIENT WITH D/C NEEDS AND PLANS.
--- NOTE | 2016-10-20 14:50 | NUR ---
PAIN MEDS ORDERED PER OCT.
[2016-10-20 16:35] VITALS: BP 101/59
--- NOTE | 2016-10-20 16:36 | NUR ---
CALL FROM FAMILY.PASSWORD CONFIRMED.STATUS UPDATE GIVEN
--- NOTE | 2016-10-20 18:46 | NUR ---
REMAINS WITHOUT NEEDS,WITHOUT CHANGE.CONT PLAN OF CARE
[2016-10-20 20:48] VITALS: BP 112/58
--- NOTE | 2016-10-20 20:55 | NUR ---
AWAKE,ALERT,ORIENTED. NO COMPLALINTS VOICED, RUE AND BLE ARE PLACCID AND EDEMATOUS. ABLE TO MOVE LUE WITH LIMITED ROM. CL IN REACH. IV INFUSING TO RIGHT HAND WIHTOUT REDNESS OR EDEMA NOTED
[2016-10-21 00:18] VITALS: BP 89/50
--- NOTE | 2016-10-21 00:50 | NUR ---
AWAKE WIHT NO COMPLAINTS OF DISCOMFORT. CL IN REACH. NO DISTRESS NOTED.
--- NOTE | 2016-10-21 03:24 | NUR ---
RN NOTE: PT RESTING IN SEMI BAUMAN'S POSITION WITH EYES CLOSED AND UNLABORED BREATHING. O2 IN USE AT 3L VIAN NC. TELEMETRY IN PLACE. SCD'S IN USE ON BLE. PATTON CATHETER DRAINING TO GRAVITY WITH YELLOW URINE IN COLLECTION BAG. IV IN RIGHT FA WITH NS AT KVO. WILL CONTINUE TO MONITOR FOR NEEDS.
[2016-10-21 04:27] VITALS: BP 121/69
--- NOTE | 2016-10-21 05:33 | NUR ---
RESTING QUIETLY. NO CHANGE IN ASSESSMENT. CL IN REACH.
--- NOTE | 2016-10-21 08:00 | NUR ---
ATE ALMOST ALL OF BREAKFAST WITH STAFF FEEDING. NO C/O AT THIS TIME.
--- NOTE | 2016-10-21 08:04 | NUR ---
AWAKE AND ALERT. ORIENTED X3. NO C/O AT THIS TIME. LUNGS ARE CLEAR BILATERALLY, OCCASSIONAL DRY COUGH NOTED. SKIN IS INTACT WITHOUT REDNESS BUT 2-3 PLUS EDEMA NOTED TO ALL EXTREMETIES. PATTON PATENT WITH CLEAR YELLOW URINE. IV TO RIGHT HAND/WRIST PATENT WITHOUT REDNESS AT INSERTION SITE. SCD'S IN PLACE. DENIES NEEDS.
[2016-10-21 08:07] VITALS: BP 104/63
--- NOTE | 2016-10-21 09:15 | NUR ---
TOOK ALL OF AM MEDS WITHOUT DIFFICULTY. SPEECH THERAPY IN ROOM WELL.
--- NOTE | 2016-10-21 11:01 | NUR ---
NUTRITION MONITORING & EVAL CHART REVIEWED. PROTEINEX ADDED TO DIET ORDER BY DR. PAT. PT CONTINUES WITH POOR PO INTAKE. FEEDER. RD FOLLOWING
[2016-10-21 11:56] VITALS: BP 110/62
--- NOTE | 2016-10-21 14:50 | NUR ---
VERY UPSET AND ANXIOUS ABOUT PENDING DISCHARGE. REQUESTED AND GIVEN O.5 MG ATIVAN SLOW IVP FOR SAME. WILL MONITOR.
--- NOTE | 2016-10-21 15:30 | NUR ---
RESTING QUIETLY WITH EYES CLOSED. DENIES NEEDS.
--- NOTE | 2016-10-21 16:30 | NUR ---
CM REASSESSMENT NOTE: PATIENT HAS BEEN ACCEPTED TO [facility]. PATIENT WILL GO BY AMBULANCE WHEN INS. AUTH COMES THROUGH PER [facility]. CM WILL CONTINUE TO FOLLOW PATIENT WITH D/C NEEDS AND PLANS.
[2016-10-21] MEDS ORDERED: ALLEGRA-D1 TAB.SR . PO (16:36)
[2016-10-21] MEDS ORDERED: CALAN120 MG PO (16:37)
[2016-10-21] MEDS ORDERED: LASIX40 MG PO (16:38)
[2016-10-21] MEDS ORDERED: MAG-OX 400 MG400 MG PO (16:40)
[2016-10-21] MEDS ORDERED: THIAMINE HCL50 MG PO (16:41)
[2016-10-21] MEDS ORDERED: POTASSIUM20 MEQ/15 PO (16:42)
--- NOTE | 2016-10-21 18:26 | NUR ---
ATE OVER HALF OF SUPPER WITH STAFF FEEDING. NO CHANGES NOTED. DENIES NEEDS.
--- NOTE | 2016-10-21 19:15 | NUR ---
COPIOUS AMOUNTS OF BLOOD NOTED TO L UPPER ARM MIDLINE DSG, DSG (MOUSE BREEDER USED), BEDDING AND GOWN CHANGED, PRESSURE DSG APPLIED, NO DISTRESS NOTED, WILL MONITOR
--- NOTE | 2016-10-21 19:50 | NUR ---
ASSESSMENT COMPLETED, NO ACUTE DISTRESS NOTED, PT TALKING WITH VISITOR, PATTON IN PLACE DRAINING TO GRAVITY, SR'S UP, CL IN REACH, WILL MONITOR
[2016-10-21 20:00] VITALS: BP 124/72
--- NOTE | 2016-10-21 20:45 | NUR ---
MEDS GIVEN PER MAR, GAIL WELL, REPOSITIONED IN BED, SAFETY MEASURES IN PLACE, CL IN REACH
--- NOTE | 2016-10-21 22:50 | NUR ---
ATIVAN GIVEN PER MAR FOR C/O ANXIETY, GAIL WELL
--- NOTE | 2016-10-21 23:15 | NUR ---
NEW PRESSURE DSG APPLIED PER DRY KILN LOADER, WILL CONTINUE TO MONITOR
--- NOTE | 2016-10-21 23:40 | NUR ---
RESTING WITH EYES CLOSED, RESP WITH EASE, NO DISTRESS NOTED, FALL PRECAUTIONS IN PLACE, CL IN REACH
[2016-10-22] VITALS: BP 128/67
--- NOTE | 2016-10-22 00:05 | NUR ---
NEW PRESSURE DSG APPLIED, CONTINUE TO ELEVATE ARM, NO ACUTE DISTRESS NOTED, WILL MONITOR
--- NOTE | 2016-10-22 01:02 | NUR ---
DSG SOAKED IN BLOOKD,NEW PRESSURE DSG APPLIED, LINEN CHANGED, HOUSE SUP NOTIFIED
--- NOTE | 2016-10-22 02:50 | NUR ---
DSG SATURATED, DSG REMOVED, NEW PRESSURE DSG APPLIED, HYPERTRICHOLOGIST TO COME ASSESS
--- NOTE | 2016-10-22 03:10 | NUR ---
Called to check on midline cath that has been bleeding with multiple dressing changes and reinforcements. Pulled out cath intact to 13 cm. Held pressure for 10 minutes. Pressure dressing applied.
[2016-10-22 04:00] VITALS: BP 120/66
--- NOTE | 2016-10-22 08:20 | NUR ---
PT. AOX4 RESP EVEN AND NONLABORED SKIN PINK WARM AND DRY WITH EDEMA GENERALIZED ALL OVER BODY. ABD SOFT AND ROUNDED BS+[id number]. BED AT LOWEST SETTING CALL LIGHT WITHIN REACH. PT DENIES PAIN AT THIS TIME. WILL CONTINUE TO MONITOR.
[2016-10-22 08:55] VITALS: BP 121/69
--- NOTE | 2016-10-22 10:05 | NUR ---
OT NOTE: DOS: 10/21/16: PATIENT COMPLETED LEFT UPPER EXTREMITY EXERCISES AAROM IN ALL PLANES. PATIENT COMPLETED OPTIMAL POSITIONING OF BUEs WITH MAX ASSIST. PATRICETN COMPLETED ORAL HYGENE WITH MAX ASSIST.
[2016-10-22 11:58] VITALS: BP 139/83
--- NOTE | 2016-10-22 13:24 | NUR ---
OT NOTE: PT SEEN TODAY FOR ROM EXS; PT GETTING MORE ACTIVE MOVEMENT OSMAN, GET IN L UE; PERFORMED A/AROM TO APPROX 90 DEGREES FLEX AND ABD IN L UE; PROM TO 90 DEGREES IN R SHOULDER; A/AROM OSMAN FOR ELBOW FLEX/EXT; WRIST FLEX/EXT; AND FINGER FLEX/EXT. CONT TO EXHIBIT DECREASED MOTOR COORDINATION, HOWEVER, SHE IS IMPROVING WITH L HAND AND IS ATTEMPTING TO GRASP OBJECTS WITH LOW LEVEL GRASP AND LIMITED THUMB MOVEMENT. PT MOTIVATED TO IMPROVE; EDUCATED ON UE AND LE EXS THAT SHE CAN PERFORM IN BED; REQUIRES MAX/TOTAL ASSIST WITH ALL ADLS
--- NOTE | 2016-10-22 13:45 | NUR ---
PT. REPORT CALLED TO JENNIFER SYLVESTER LPN AT [facility] AT THIS TIME.
--- NOTE | 2016-10-22 14:01 | NUR ---
CM REASSEMENT NOTE: PATIENT IS DISCHARGING TODAY TO [facility] PATIENT IS GOING BY AMBULANCE AND REPORT HAS BEEN CALLED BY NURSE. FAMILY AWARE
--- NOTE | 2016-10-22 14:12 | NUR ---
PT. IV DISCONTINUED WITH CATHETER INTACT WITH A BANDAGE APPLIED. PT. LEFT BUILDING ON [employer] [employer] TO GO TO [facility]
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
== END 2016-10-22 14:09 | DRG 871 ==
LOC: D.ER 15:22 → D.MS 20:50 → D.ICU 20:50 → D.MS 10-11 17:46
PROVIDERS: Emergency Medicine; Family Medicine; Internal Medicine Pulmonary Disease; ADMIT Family Medicine
PROC: 0T9B70Z Drainage of Bladder with Drainage Device, Via Natural or Artificial Opening (ICD-10-PCS; principal; 2016-10-10)
DX: A41.9 Sepsis, unspecified organism (principal); J96.01 Acute respiratory failure with hypoxia; J18.9 Pneumonia, unspecified organism; G93.41 Metabolic encephalopathy; N39.0 Urinary tract infection, site not specified; G82.20 Paraplegia, unspecified; R65.20 Severe sepsis without septic shock; G89.4 Chronic pain syndrome; E86.0 Dehydration; I12.9 Hypertensive chronic kidney disease with stage 1 through stage 4 chronic kidney disease, or unspecified chronic kidney disease; N18.9 Chronic kidney disease, unspecified; F32.9 Major depressive disorder, single episode, unspecified; R13.12 Dysphagia, oropharyngeal phase; D64.9 Anemia, unspecified; L89.302 Pressure ulcer of unspecified buttock, stage 2; F10.10 Alcohol abuse, uncomplicated; K21.9 Gastro-esophageal reflux disease without esophagitis; E83.42 Hypomagnesemia